=== PATIENT | male | born 2000 | race Two or more races ===

== ENCOUNTER 2025-09-11 15:14 | Emergency (ER) | payer OTHER ==
[~2025-09-11] VITALS: Ht 172.7 cm; Wt 93.0 kg
[2025-09-11] MEDS ORDERED: MECLIZINE HCL 25 MG TABLET ONE (15:53)
[2025-09-11] MEDS ORDERED: ONDANSETRON HCL/PF 4 MG/2 ML VIAL ONE (15:53)
[2025-09-11] MEDS ORDERED: KETOROLAC TROMETHAMINE INJ 30 MG/ML VIAL ONE (15:53)
[2025-09-11] MEDS: IV NS 0.9% 1,000 ML BAG IV ONE (15:59)
[2025-09-11] MEDS: MECLIZINE HCL 25 MG TABLET PO ONE (16:00)
[2025-09-11] MEDS: KETOROLAC TROMETHAMINE INJ 30 MG/ML VIAL IV ONE (16:00)
[2025-09-11] MEDS: ONDANSETRON HCL/PF 4 MG/2 ML VIAL IVP ONE (16:00)
[2025-09-11 16:08] LABS: CALCIUM, SERUM 9.1 mg/dL (8.5-10.1); CREATININE 0.8 mg/dL (0.6-1.3); SODIUM SERUM 139 mmol/L (136-145); UREA NITROGEN, BLOOD 11 mg/dL (7-18)
[2025-09-11 16:09] LABS: PLATELET COUNT (AUTO) 248 K/uL (150-450); RED BLOOD CELL COUNT(AUTO) 4.74 MIL/uL (4.5-6.0); RED CELL DISTRIBUTION WIDTH 12.3 % (11.5-15.0); WHITE BLOOD COUNT (AUTO) 4.5 K/uL (4.3-11.0)
[2025-09-11 16:13] LABS: ASPARTATE AMINOTRANSFERASE 22 U/L (15-37); TOTAL PROTEIN, SERUM 7.4 g/dL (6.4-8.2)
[2025-09-11] MEDS ORDERED: MECL-159 PO (16:47)
[2025-09-11 17:11] VITALS: BP 141/80; TEMP 98.6; O2SAT 99
== END 2025-09-11 17:13 | disposition home or self-care (01) ==
LOC: ER 15:18
DX: R42 Dizziness and giddiness (principal); R11.0 Nausea
CPT/HCPCS: 99284; 96374; 96361; 96375; 93005; 85025; 80048; 83690; 80076; 36415; 84484; J1885; J8597; J2405; J7030